=== PATIENT | female | born 1930 | race Caucasian/White ===

== ENCOUNTER → 2017-04-12 | Outpatient (CLI) | payer MEDICARE, OTHER ==
[~2017-04-12] MED LIST: CALCIUM500 M1 PO; EVISTA60 MG PO; KLOR-CON M2020 MEQ PO; LISINOPRIL 5MG T5 MG PO; METFORMIN HCL1000 MG PO; SIMVASTATIN40 MG PO; SYNTHROID0.112 MG PO; [UNRECOGNIZED DRUG - OTHER]
--- NOTE | 2017-04-12 12:27 | RADIOLOGY REPORT PS360 ---
CHEST(2 VIEWS-NOT PORTABLE) HISTORY: COUGH ORDERING PHYSICIAN: Jayjay Cooley MD PATIENT AGE: 86 years COMPARISON: Outside Chest CT of 07/07/2010 FINDINGS: Normal heart size. Moderate hyperinflation with attenuation of the peripheral bony vessels consistent with COPD. Ill-defined nodular opacity is present in the right upper lobe at 16 mm and in the right midlung at 13 mm. These appear more prominent than on the previous chest CT somewhat difficult to compare the 2 different entities. On the left there is a cyst 5 and an 11 mm nodule in the mid lung and a 4 mm nodule in the lower aspect of the left chest. No effusions evident. There is patchy density in the right infrahilar region at 2 cm and could be due to an area of pneumonia or enlarging nodule. Probable nipple artifact noted on the left. No acute bony anomalies. IMPRESSION: 1. Obstructive chronic bronchitis. 2. Multiple bilateral pulmonary nodules which appear somewhat more prominent than on the older chest CT. Recommend chest CT for more thorough evaluation.
[2017-04-12 14:29] LABS: URINE BILIRUBIN - DIPSTICK NEGATIVE (NEG); URINE BLOOD TRACE-INTACT (NEG)
== END ==
LOC: RAD 10:13 → LAB 10:13
PROVIDERS: Internal Medicine Adolescent Medicine
DX: R32 Unspecified urinary incontinence (principal); R05 Cough